=== PATIENT | male | born 1945 | race Caucasian/White ===

== ENCOUNTER 2021-11-28 10:51 | Day surgery (SDC) | payer MEDICARE ==
[2021-11-28] VITALS (11 sets, daily range): BP systolic 108–157; BP diastolic 68–120
[~2021-11-28] VITALS: Ht 172.7 cm; Wt 94.7 kg
[2021-11-28] MEDS ORDERED: normal saline 1,000 ML IV SCH (11:25)
[2021-11-28] MEDS ORDERED: nitroGLYCERIN 0.4mg SUBLingual tab SL PRN ×2 (11:25→16:00)
[2021-11-28] MEDS ORDERED: diphenhydrAMINE 25mg capsule PO PRN (11:25)
[2021-11-28] MEDS ORDERED: CABE0.5T2 PO (11:55)
[2021-11-28] MEDS ORDERED: OMEP20CA16 PO (11:55)
[2021-11-28] MEDS ORDERED: VALS160T30 PO (11:55)
[2021-11-28] MEDS ORDERED: CITA20TA28 PO (11:55)
[2021-11-28] MEDS ORDERED: fentaNYL/PF 50MCG/1 ML 2ML syringe ONE (14:30)
[2021-11-28] MEDS ORDERED: midazolam 1 mg/ML 2ml injection ONE (14:30)
[2021-11-28] MEDS ORDERED: iohexol 350MG/ML 100ml bottle IV ONE (14:30)
[2021-11-28] MEDS ORDERED: LIDOcaine 1% 30ml preserv. free vial ONE (14:31)
[2021-11-28] MEDS ORDERED: nitroGLYCERIN-Tridil 50MG/D5W 250 ML IV ONE (15:17)
[2021-11-28] MEDS ORDERED: ondansetron/PF 4mg/2ml inj IV PRN (16:00)
[2021-11-28] MEDS ORDERED: HYDROcodone/acetaminophen 10/325mg tab PO PRN (16:00)
[2021-11-28] MEDS ORDERED: HYDROcodone/acetaminophen 5mg/325mg tablet PO PRN (16:00)
[2021-11-28] MEDS ORDERED: OXAZEpam 15mg capsule PO PRN (16:00)
[2021-11-28] MEDS ORDERED: normal saline 1000ml 1,000 ML IV SCH (16:00)
[2021-11-28] MEDS ORDERED: proCHLORperazine 10 MG/2 ml inj IV PRN (16:00)
== END 2021-11-28 20:30 | disposition home or self-care (01) ==
LOC: SSTAY O 10:51
PROVIDERS: ATTEND Internal Medicine Cardiovascular Disease
DX: R94.39 Abnormal result of other cardiovascular function study (principal); I25.10 Atherosclerotic heart disease of native coronary artery without angina pectoris; I10 Essential (primary) hypertension; E03.9 Hypothyroidism, unspecified; K21.9 Gastro-esophageal reflux disease without esophagitis; M19.90 Unspecified osteoarthritis, unspecified site; E78.5 Hyperlipidemia, unspecified; Z79.899 Other long term (current) drug therapy
CPT/HCPCS: 93005; 93458; 99152; C1760; C1769; J1644; J2250; J3010; J3490; J7030; Q0163; A4620; A6258; Q9967

== ENCOUNTER 2024-12-02 11:05 | Outpatient (CLI) | payer MEDICARE ==
[~2024-12-02 11:05] MED LIST: CABE0.5T2 PO; CITA-178 PO; OMEP20CA16 PO; VALS160T30 PO
--- NOTE | 2024-12-02 13:10 | RADIOLOGY REPORT ---
MRI BRAIN WITHOUT CONTRAST CLINICAL HISTORY: GAIT DISTURBANCE TECHNIQUE: Multiplanar, multisequence MR images of the brain without intravenous contrast. Comparison: None FINDINGS: There is no restricted diffusion. There are mild chronic small-vessel white matter ischemic changes. There is no evidence of hemorrhage, mass, mass effect or midline shift. There is no hydrocephalus or extra-axial fluid collection. The visualized intracranial vasculature demonstrates appropriate flow-v oids. There is no gross evidence of an IAC or CP angle lesion. The sagittal midline structures appear unremarkable. The craniocervical junction is within normal limits. The calvarium demonstrates normal marrow signal. There is moderate mucosal thickening throughout the paranasal sinuses, worst in the f rontal and ethmoid sinuses. Mastoid air cells are clear. IMPRESSION: 1. There is no acute intracranial process. HS:Y
== END 2024-12-02 23:59 | disposition home or self-care (01) ==
LOC: MRI02 11:05
PROVIDERS: ATTEND Internal Medicine
DX: J32.2 Chronic ethmoidal sinusitis (principal); G91.2 (Idiopathic) normal pressure hydrocephalus; R26.9 Unspecified abnormalities of gait and mobility; R26.89 Other abnormalities of gait and mobility; J32.4 Chronic pansinusitis
CPT/HCPCS: 70551